=== PATIENT | female | born 1935 | race Caucasian/White ===

== ENCOUNTER 2019-04-08 13:29 | Emergency (ER) | payer OTHER ==
[~2019-04-08] VITALS: Ht 157.5 cm; Wt 69.4 kg
[2019-04-08] MEDS ORDERED: AZOPT10 ML (13:42)
[2019-04-08] MEDS ORDERED: ZANAFLEX2 MG PO (14:37)
== END 2019-04-08 15:15 | disposition home or self-care (01) ==
LOC: ER 13:29
DX: M54.2 Cervicalgia (principal); M62.838 Other muscle spasm